=== PATIENT | female | born 1980 | race Two or more races ===

== ENCOUNTER 2022-02-13 22:00 | Emergency (ER) | payer SELFPAY ==
[~2022-02-13] VITALS: Ht 160 cm; Wt 104.3 kg
--- NOTE | 2022-02-13 22:31 | NUR ---
dr. Lyn at bedside for MSE.
--- NOTE | 2022-02-13 22:40 | NUR ---
Pt refused C Collar
[2022-02-13] MEDS ORDERED: IBUPROFEN 600 MG TABLET PO ONE (22:45)
[2022-02-13] MEDS ORDERED: ONDANSETRON ODT 4 MG TAB.RAPDIS SL ONE (22:45)
[2022-02-13] MEDS ORDERED: OXYCODONE/APAP 5-325 MG TABLET PO ONE (22:45)
--- NOTE | 2022-02-13 22:46 | NUR ---
Pt left for CT
[2022-02-13] MEDS ORDERED: ONDANSETRON ODT 4 MG TAB.RAPDIS ONE (22:58)
[2022-02-13] MEDS ORDERED: IBUPROFEN 600 MG TABLET ONE (22:59)
[2022-02-13] MEDS ORDERED: OXYCODONE/APAP 5-325 MG TABLET ONE (22:59)
--- NOTE | 2022-02-13 23:08 | NUR ---
Pt refused Percocet
--- NOTE | 2022-02-13 23:31 | NUR ---
Pt left AMA. Explained risks of leaving against medical advise, pt still decided to leave.
[2022-02-13 23:32] VITALS: BP 128/88
--- NOTE | 2022-02-13 23:38 | NUR ---
Patient does not wish to proceed with medical care recommended by ( ). Patient given information related to possible complications, up to and including , which could occur as a result of leaving the hospital at this time. Patient verbalizes understanding of risks involved due to leaving against medical advice. Patient has signed AMA form.
== END 2022-02-13 23:43 | disposition left against medical advice (07) ==
LOC: ER 22:00
DX: R51.9 Headache, unspecified (principal); M54.2 Cervicalgia; M54.9 Dorsalgia, unspecified; Z91.81 History of falling; Z53.29 Procedure and treatment not carried out because of patient's decision for other reasons; R20.2 Paresthesia of skin; E66.9 Obesity, unspecified; Z68.41 Body mass index [BMI] 40.0-44.9, adult
CPT/HCPCS: A4663; Q0162